=== PATIENT | male | born 1995 | race Caucasian/White ===

== ENCOUNTER 2025-03-22 16:50 | Emergency (ER) | payer OTHER, BC ==
[2025-03-22] MEDS ORDERED: Sodium Chloride 0.9% 10 ML Syringe FLUSH PRN (17:09)
[2025-03-22] MEDS ORDERED: Sodium Chloride 0.9% 20 ML SDV IV PRN (17:09)
[2025-03-22] MEDS ORDERED: Sodium Chloride 0.9% 2.5 ML Syringe FLUSH PRN (17:09)
[2025-03-22 17:13] LABS: BASOPHILS ABSOLUTE AUTO 0.04 K/uL (0.00-0.20); BASOPHILS PERCENT AUTO 0.5 % (0.0-1.0); EOSINOPHILS ABSOLUTE AUTO 0.09 K/uL (0.00-0.45); HEMATOCRIT 45.4 % (42.0-52.0); HEMOGLOBIN 15.9 g/dL (14.0-18.0); IMMATURE GRAN ABSOLUTE AUTO 0.03 K/uL (0.00-0.05); IMMATURE GRAN PERCENT AUTO 0.3 % (0.0-0.4); LYMPHOCYTES ABSOLUTE AUTO 2.72 K/uL (1.00-4.80); LYMPHOCYTES PERCENT AUTO 31.2 % (24.0-44.0); MEAN CORPUSCULAR HEMOGLOBIN 29.9 pg (28.0-32.0); MEAN CORPUSCULAR VOLUME 85.3 fL (83.0-99.0); MEAN PLATELET VOLUME 9.4 fL (9.4-12.4); MONOCYTES PERCENT AUTO 5.7 % (0.0-8.0); NEUTROPHILS ABSOLUTE AUTO 5.34 K/uL (1.80-7.70); NEUTROPHILS PERCENT AUTO 61.3 % (41.0-71.0); PLATELET COUNT,PLT 316 K/uL (150-400); RED BLOOD CELL COUNT 5.32 M/uL (4.52-5.90); WHITE BLOOD CELL COUNT,WBC 8.72 K/uL (3.9-11.3)
[2025-03-22] MEDS: Morphine 4 MG/ML Syringe IVPUSH ONE (17:18)
[2025-03-22] MEDS: ceFAZolin 2 GM in Water For Injection, Sterile 20 ML IVPUSH ONE (17:19)
[2025-03-22 17:33] LABS: APPEARANCE,URINE CLEAR; BILIRUBIN,URINE NEGATIVE (NEGATIVE); COLOR,URINE YELLOW; GLUCOSE,URINE NEGATIVE (NEGATIVE); KETONES,URINE NEGATIVE (NEGATIVE); LEUKOCYTE ESTERASE,URINE NEGATIVE (NEGATIVE); NITRITE,URINE NEGATIVE (NEGATIVE); OCCULT BLOOD,URINE NEGATIVE (NEGATIVE); PROTEIN,URINE NEGATIVE (NEGATIVE); UROBILINOGEN,URINE 0.2 EU/dL (<2.0)
[2025-03-22 17:36] LABS: A/G RATIO 1.3 (0.9-1.6); ALBUMIN 4.5 g/dL (3.4-5.0); BILIRUBIN TOTAL 0.4 mg/dL (0.2-1.0); CALCIUM 9.2 mg/dL (8.5-10.1); CARBON DIOXIDE,CO2 26.2 mmol/L (21.0-32.0); CREATININE 1.4 mg/dL (0.8-1.3); EST CRCL DRUG DOSING (CG) 78.56 mL/min
== END 2025-03-22 20:00 | disposition home or self-care (01) ==
LOC: MW.ED 16:50
DX: S42.001A Fracture of unspecified part of right clavicle, initial encounter for closed fracture (principal); S51.011A Laceration without foreign body of right elbow, initial encounter; Z90.49 Acquired absence of other specified parts of digestive tract; F17.200 Nicotine dependence, unspecified, uncomplicated; W18.40XA Slipping, tripping and stumbling without falling, unspecified, initial encounter
CPT/HCPCS: 12001; 36415; 71101; 73030; 73060; 73090; 80053; 80307; 81003; 83690; 85025; 96374; 96375; 99283; J0690; J2270